=== PATIENT | male | born 1980 | race Caucasian/White ===

== ENCOUNTER 2017-11-30 12:17 | Emergency (ER) | payer BC, SELFPAY ==
[2017-11-30] MEDS ORDERED: HYDROcodone/Acetaminophen 5/325 mg Tablet ONE (14:29)
[2017-11-30] MEDS ORDERED: Sulfameth/Trimethoprim DS 800-160mg TAB ONE (14:29)
[2017-11-30] MEDS ORDERED: Cephalexin 500 MG CAP ONE (14:29)
== END 2017-11-30 14:35 | disposition home or self-care (01) ==
LOC: MADERS 12:17
DX: L03.311 Cellulitis of abdominal wall (principal); F17.210 Nicotine dependence, cigarettes, uncomplicated; Z79.1 Long term (current) use of non-steroidal anti-inflammatories (NSAID)
CPT/HCPCS: 99282